=== PATIENT | male | born 1965 | race Caucasian/White ===

== ENCOUNTER → 2016-05-14 | Outpatient (CLI) | payer BC ==
--- NOTE | ~2016-05-14 | PUL ---
PATIENT'S NAME: CORKY CORONADO [facility] AGE: 50 Y [address] ROOM: [place] [id number] LOCATION: [facility] ADMIT DATE: 05/14/2016 Pulmonary DISCHARGE DATE: FAMILY PHYSICIAN: Maryam Rosado PA-C ATTENDING PHYSICIAN: RAMIN CHENEY NAME OF PROCEDURE: Pulmonary Function Test DATE OF PROCEDURE: May 13, 2016 TECH: THIERRY Coombs REASON FOR EXAM: Chronic cough RESULTS: 1. FVC was 5.39 liters which is 89% of predicted and normal, FEV1 was 4.16 liters which is 89% of predicted and normal, and FEV1/FVC was 77% and normal. The flow volume curve did not reveal any significant airflow limitation. After bronchodilator administration FVC increased to 5.74 liters which is a 6% increase, and FEV1 increased to 4.52 liters which is a 9% increase. FEV1/FVC was 79%. 2. DLCO was 36.5 with an adjusted DLCO of 37.3 which is 89% of predicted and normal. 3. Total lung capacity was 6.89 liters which is 84% of predicted and low, and residual volume was 1.5 liters which is 57% of predicted and low. PHYSICIAN INTERPRETATION: The patient has no airflow limitation and no significant bronchodilator response. His diffusion capacity is normal. There is evidence of mild restrictive lung disease. MD AGATA MEJIA/yoan /[id number] dtt: 05/19/16 [id number] SHRAVAN RADU F dtd: 05/18/16 1047
== END | disposition disaster alternative care site (69) ==
LOC: GRAD 07:31
DX: J98.8 Other specified respiratory disorders (principal); R05 Cough